=== PATIENT | female | born 1935 | race Caucasian/White ===

== ENCOUNTER 2021-02-24 17:24 | Inpatient (IN) | payer MEDICARE, MEDICAID ==
[~2021-02-24] VITALS: Ht 154.9 cm; Wt 57.6 kg
[2021-02-24] MEDS ORDERED: INSULIN SQ (17:28)
[2021-02-24] MEDS ORDERED: METOPROLOL PO (17:28)
[2021-02-24] MEDS ORDERED: OMEPRAZOLE PO (17:28)
[2021-02-24] MEDS ORDERED: ARICEPT PO (17:28)
[2021-02-24] MEDS ORDERED: CARBIDOPA/LEVODOPA PO (17:28)
[2021-02-24 18:28] LABS: BASOPHILS % 1.1 % (0.0-2.0); EOSINOPHILS % 2.3 % (0.0-5.0); HEMOGLOBIN. 12.1 g/dL (12.0-16.0); LYMPHOCYTES % 20.5 % (20.0-50.0); MEAN CORPUSCULAR HEMOGLOBIN 27.3 pg (28.0-32.0); MEAN CORPUSCULAR VOLUME 83.4 fL (81.0-99.0); MEAN PLATELET VOLUME 9.8 fl (7.4-10.4); NEUTROPHILS % 69.1 % (40.0-76.0); PLATELET 181 x1000/uL (130-400); RED BLOOD CELL COUNT 4.43 mill/uL (4.2-5.4); RED CELL DISTRIBUTION WIDTH 14.8 % (11.6-14.6)
[2021-02-24 18:36] LABS: CHLORIDE 101 mEq/L (98-107)
[2021-02-24 18:38] LABS: PROTHROMBIN TIME 11.1 sec (9.6-11.0)
[2021-02-24] MEDS ORDERED: IOHEXOL-350 100 ML BOTTLE ONE (18:38)
[2021-02-24 18:41] LABS: ETHANOL BLOOD < 10 mg/dL
[2021-02-24 18:44] LABS: LDL CHOLESTEROL 146 mg/dL (5-100)
[2021-02-24 18:45] LABS: CREATINE KINASE 29 IU/L (26-192)
[2021-02-24] MEDS ORDERED: ASPIRIN 325MG EC TABLET PO ONE (19:00)
[2021-02-24] MEDS ORDERED: INSULIN REGULAR (HUMULIN R) 300UNITS/3ML VIAL SUBCUT ONE ×2 (19:00→20:45)
[2021-02-24] MEDS ORDERED: HYDRALAZINE 20MG/ML VIAL IV ONE (19:00)
[2021-02-24] MEDS ORDERED: SODIUM CHLORIDE 0.9% 500 ML IV ONE (19:00)
[2021-02-24] MEDS ORDERED: ATORVASTATIN CALCIUM 40MG TABLET PO SCH (19:03)
[2021-02-24] MEDS ORDERED: DOXYCYCLINE HYCLATE 100MG CAPSULE PO ONE (20:00)
[2021-02-24] MEDS ORDERED: CEFTRIAXONE 1 G PREMIX 50 ML IV ONE (20:00)
[2021-02-24 21:58] LABS: CLARITY URINE CLEAR (CLEAR); COLOR URINE YELLOW (YELLOW); KETONES URINE NEGATIVE (NEGATIVE); LEUKOCYTE ESTERASE URINE NEGATIVE (NEGATIVE); NITRITE URINE NEGATIVE (NEGATIVE); OCCULT BLOOD URINE NEGATIVE (NEGATIVE); PROTEIN URINE 2+ (NEGATIVE); SPECIFIC GRAVITY URINE 1.033 (1.005-1.030); UROBILINOGEN URINE 0.2 E.U./dL (0.2-1.0)
[2021-02-24 22:18] LABS: *AMPHETAMINES SCREEN URINE NEGATIVE (NEGATIVE); *BARBITURATES SCREEN URINE NEGATIVE (NEGATIVE); *BENZODIAZEPINES SCREEN URINE NEGATIVE (NEGATIVE); *COCAINE SCREEN URINE NEGATIVE (NEGATIVE); METHADONE URINE SCREEN NEGATIVE (NEGATIVE)
[2021-02-24 22:19] LABS: CANNABINOID URINE SCREEN NEGATIVE (NEGATIVE); OPIATES URINE SCREEN NEGATIVE (NEGATIVE); PHENCYCLIDINE URINE SCREEN NEGATIVE (NEGATIVE)
[2021-02-25] MEDS ORDERED: CLONIDINE 0.1MG TABLET PO PRN ×2 (00:15→04:15)
[2021-02-25 01:00] VITALS: BP 137/87
[2021-02-25 04:00] VITALS: BP 150/64
[2021-02-25] MEDS ORDERED: DEXTROSE 50% WATER 50ML SYRINGE IV PRN (04:15)
[2021-02-25] MEDS ORDERED: AZITHROMYCIN 500 MG in DEXT 5% WATER 250 ML IV SCH (06:00)
[2021-02-25 08:00] VITALS: BP 155/63
[2021-02-25] MEDS: BLOOD SUGAR DIAGNOSTIC STRIP TEST SCH ×4 (08:23→21:12)
[2021-02-25] MEDS ORDERED: ENOXAPARIN 30MG/0.3ML SYR SUBCUT SCH (09:00)
[2021-02-25] MEDS ORDERED: ENOXAPARIN 40MG/0.4ML SYR SUBCUT SCH (09:00)
[2021-02-25] MEDS: CARBIDOPA/LEVODOPA 25/100MG TABLET PO SCH ×3 (09:09→16:26)
[2021-02-25] MEDS: METOPROLOL TARTRATE 25MG TABLET PO SCH ×2 (09:09→21:13)
[2021-02-25] MEDS: DONEPEZIL HCL 10MG TABLET PO SCH (09:09)
[2021-02-25] MEDS: AMLODIPINE 10MG TABLET PO SCH (09:10)
[2021-02-25] MEDS: INSULIN LISPRO 100 UNITS/ML SUBCUT SCH ×4 (09:11→21:15)
[2021-02-25] MEDS ORDERED: INSULIN GLARGINE UD 100 UNITS/ML SYR SUBCUT SCH (10:00)
[2021-02-25 12:00] VITALS: BP 152/61
[2021-02-25 16:00] VITALS: BP 194/71
[2021-02-25] MEDS: ONDANSETRON HCL 4MG/2ML INJ IV PRN (16:26)
[2021-02-25] MEDS: ACETAMINOPHEN 325MG TABLET PO PRN (17:01)
[2021-02-25] MEDS: HYDRALAZINE HCL 100MG TABLET PO SCH (19:28)
[2021-02-25 20:00] VITALS: BP 135/48
[2021-02-25] MEDS ORDERED: CEFTRIAXONE 1,000 MG in DEXTROSE 5% WATER 50 ML IV SCH (21:00)
[2021-02-25] MEDS: ATORVASTATIN CALCIUM 40MG TABLET PO SCH (21:13)
[2021-02-25] MEDS: INSULIN GLARGINE UD 100 UNITS/ML SYR SUBCUT SCH (21:14)
[2021-02-26] VITALS: BP 132/81
[2021-02-26 04:00] VITALS: BP 152/60
[2021-02-26] MEDS: BLOOD SUGAR DIAGNOSTIC STRIP TEST SCH ×5 (06:25→21:39)
[2021-02-26 08:00] VITALS: BP 140/60
[2021-02-26] MEDS: CARBIDOPA/LEVODOPA 25/100MG TABLET PO SCH ×3 (09:19→18:07)
[2021-02-26] MEDS: METOPROLOL TARTRATE 25MG TABLET PO SCH ×2 (09:19→21:00)
[2021-02-26] MEDS: HYDRALAZINE HCL 100MG TABLET PO SCH ×2 (09:19→18:07)
[2021-02-26] MEDS: DONEPEZIL HCL 10MG TABLET PO SCH (09:19)
[2021-02-26] MEDS: ASPIRIN 81MG EC TABLET PO SCH (09:20)
[2021-02-26] MEDS: AMLODIPINE 10MG TABLET PO SCH (09:20)
[2021-02-26] MEDS: ENOXAPARIN 30MG/0.3ML SYR SUBCUT SCH (09:21)
[2021-02-26] MEDS: INSULIN LISPRO 100 UNITS/ML SUBCUT SCH ×4 (09:22→21:00)
[2021-02-26] MEDS: INSULIN GLARGINE UD 100 UNITS/ML SYR SUBCUT SCH ×2 (09:24→22:00)
[2021-02-26] MEDS ORDERED: INSU100I28 SQ (11:22)
[2021-02-26 12:00] VITALS: BP 123/62
[2021-02-26] MEDS: ONDANSETRON HCL 4MG/2ML INJ IV PRN (14:03)
[2021-02-26 16:00] VITALS: BP 128/65
[2021-02-26 20:00] VITALS: BP 161/67
[2021-02-26] MEDS ORDERED: MORPHINE SULFATE 2 MG/ML CPJ (NOT FOR IM USE) IV PRN (20:45)
[2021-02-26] MEDS: ATORVASTATIN CALCIUM 40MG TABLET PO SCH (21:00)
[2021-02-26] MEDS ORDERED: LORAZEPAM 1MG TABLET PO PRN (21:00)
[2021-02-26] MEDS: LORAZEPAM 2MG/ML CPJ IV PRN (21:30)
[2021-02-27] VITALS: BP 112/55
[2021-02-27 04:00] VITALS: BP 117/39
[2021-02-27] MEDS: BLOOD SUGAR DIAGNOSTIC STRIP TEST SCH ×4 (07:10→21:06)
[2021-02-27] MEDS: INSULIN LISPRO 100 UNITS/ML SUBCUT SCH ×4 (07:40→21:00)
[2021-02-27 08:39] VITALS: BP 132/41
[2021-02-27] MEDS: CARBIDOPA/LEVODOPA 25/100MG TABLET PO SCH ×4 (09:33→17:43)
[2021-02-27] MEDS: DONEPEZIL HCL 10MG TABLET PO SCH (09:33)
[2021-02-27] MEDS: ASPIRIN 81MG EC TABLET PO SCH (09:33)
[2021-02-27] MEDS: AMLODIPINE 10MG TABLET PO SCH (09:33)
[2021-02-27] MEDS: HYDRALAZINE HCL 100MG TABLET PO SCH ×3 (09:33→17:43)
[2021-02-27] MEDS: ENOXAPARIN 30MG/0.3ML SYR SUBCUT SCH (09:34)
[2021-02-27] MEDS: METOPROLOL TARTRATE 25MG TABLET PO SCH ×2 (09:34→21:00)
[2021-02-27] MEDS: INSULIN GLARGINE UD 100 UNITS/ML SYR SUBCUT SCH ×2 (09:36→21:36)
[2021-02-27 12:02] VITALS: BP 156/69
[2021-02-27] MEDS: LORAZEPAM 2MG/ML CPJ IV PRN (13:18)
[2021-02-27] MEDS ORDERED: LORAZEPAM 2MG/ML CPJ IV NR (14:15)
[2021-02-27] MEDS ORDERED: CLOP-31 MT (15:14)
[2021-02-27] MEDS ORDERED: LIP40 MT (15:14)
[2021-02-27 16:00] VITALS: BP 149/65
[2021-02-27 20:00] VITALS: BP 124/55
[2021-02-27] MEDS: ATORVASTATIN CALCIUM 40MG TABLET PO SCH (21:00)
[2021-02-28] VITALS: BP 151/64
[2021-02-28 04:00] VITALS: BP 129/55
[2021-02-28] MEDS: INSULIN LISPRO 100 UNITS/ML SUBCUT SCH ×3 (05:48→17:40)
[2021-02-28] MEDS: BLOOD SUGAR DIAGNOSTIC STRIP TEST SCH ×3 (05:48→17:10)
[2021-02-28 08:00] VITALS: BP 134/67
[2021-02-28] MEDS ORDERED: CLOPIDOGREL 75MG TABLET PO SCH (09:00)
[2021-02-28] MEDS: AMLODIPINE 10MG TABLET PO SCH (09:09)
[2021-02-28] MEDS: ASPIRIN 81MG EC TABLET PO SCH (09:10)
[2021-02-28] MEDS: METOPROLOL TARTRATE 25MG TABLET PO SCH (09:10)
[2021-02-28] MEDS: DONEPEZIL HCL 10MG TABLET PO SCH (09:10)
[2021-02-28] MEDS: CARBIDOPA/LEVODOPA 25/100MG TABLET PO SCH ×3 (09:10→17:00)
[2021-02-28] MEDS: HYDRALAZINE HCL 100MG TABLET PO SCH ×2 (09:10→17:00)
[2021-02-28] MEDS: ENOXAPARIN 30MG/0.3ML SYR SUBCUT SCH (09:11)
[2021-02-28] MEDS: INSULIN GLARGINE UD 100 UNITS/ML SYR SUBCUT SCH (10:00)
[2021-02-28 12:00] VITALS: BP 136/66
[2021-02-28] MEDS: ACETAMINOPHEN 325MG TABLET PO PRN (12:56)
[2021-02-28 16:00] VITALS: BP 140/71
[2021-02-28 16:19] LABS: BASOPHILS % 1.1 % (0.0-2.0); EOSINOPHILS % 1.7 % (0.0-5.0); HEMATOCRIT. 43.2 % (36.0-48.0); HEMOGLOBIN. 14.7 g/dL (12.0-16.0); LYMPHOCYTES % 21.7 % (20.0-50.0); MEAN CORPUSCULAR HEMOGLOBIN 27.8 pg (28.0-32.0); MEAN CORPUSCULAR VOLUME 81.6 fL (81.0-99.0); MEAN PLATELET VOLUME 10.2 fl (7.4-10.4); MONOCYTES % 8.6 % (2.0-8.0); NEUTROPHILS % 66.9 % (40.0-76.0); PLATELET 202 x1000/uL (130-400); RED BLOOD CELL COUNT 5.29 mill/uL (4.2-5.4); RED CELL DISTRIBUTION WIDTH 14.6 % (11.6-14.6)
== END 2021-02-28 17:45 | disposition home or self-care (01) | DRG 64 ==
LOC: ER 18:01 → 7WST 20:42 → EDBEDREQTM 20:45 → EDBEDREQ 20:45 → EDBEDREQSVC 20:45 → ENRESERV 23:27 → 8WST 02-26 01:09
PROVIDERS: ADMIT Internal Medicine; ATTEND Internal Medicine
PROC: 4A00X4Z Measurement of Central Nervous Electrical Activity, External Approach (ICD-10-PCS; principal; 2021-02-28)
DX: I63.9 Cerebral infarction, unspecified (principal); G93.41 Metabolic encephalopathy; E43 Unspecified severe protein-calorie malnutrition; E87.1 Hypo-osmolality and hyponatremia; F03.90 Unspecified dementia, unspecified severity, without behavioral disturbance, psychotic disturbance, mood disturbance, and anxiety; E11.9 Type 2 diabetes mellitus without complications; E78.5 Hyperlipidemia, unspecified; R41.0 Disorientation, unspecified; Z20.822 Contact with and (suspected) exposure to COVID-19; I10 Essential (primary) hypertension; Z85.3 Personal history of malignant neoplasm of breast; Z68.24 Body mass index [BMI] 24.0-24.9, adult; Z78.1 Physical restraint status; Z79.1 Long term (current) use of non-steroidal anti-inflammatories (NSAID); Z79.82 Long term (current) use of aspirin; Z79.899 Other long term (current) drug therapy
CPT/HCPCS: 36415; 70496; 70498; 70551; 71045; 74018; 80048; 80053; 80305; 80320; 81003; 82550; 82962; 83036; 83605; 83721; 83880; 84484; 85025; 93005; 93306; 95816; 97162; 97530; 99291; J0360; J0456; J0696; J1650; J1815; J2060; J2405; J7060; Q9967; U0003; U0005; G0480